=== PATIENT | female | born 1970 | race Caucasian/White ===

== ENCOUNTER 2018-01-26 14:35 | Outpatient (CLI) | payer OTHER ==
--- NOTE | 2018-01-26 18:38 | Diagnostic Imaging Report ---
SAGAR SIDDIQUI (ALEX) - OP [facility] [id number] [address] Report Submission Date: Jan 26, 2018 3:15:16 PM CDT Patient Study Name: NADIRA GOMES Date: Jan 26, 2018 2:54:10 PM CDT Modality Type: DX Gender: F Description: UPPER EXTREMITY : 66 Institution: [facility] Physician: SAGAR SIDDIQUI (ALEX) - OP Examination: Plain film left forearm History: LT FOREARM, PAIN IN DISTAL LT FOREARM AFTER FALL, Tuesday01/23/18 (Hx) Comparison exams: None available Findings: 2 views of the left radius and ulna demonstrates osteopenia. No evidence for fracture line. No soft tissue abnormality. Impression: Osteopenia. No acute appearing osseous abnormality. Electronically signed on Jan 26, 2018 3:15:16 PM CDT by: Holden SEPULVEDA
--- NOTE | 2018-01-26 18:38 | Diagnostic Imaging Report ---
SAGAR SIDDIQUI (ALEX) - OP [facility] [id number] [address] Report Submission Date: Jan 26, 2018 3:13:29 PM CDT Patient Study Name: NADIRA GOMES Date: Jan 26, 2018 2:49:55 PM CDT Modality Type: DX Gender: F Description: UPPER EXTREMITY : 66 Institution: [facility] Physician: SAGAR SIDDIQUI (ALEX) - OP Examination: Plain film left wrist History: LT WRIST, PAIN IN LT WRIST AFTER FALL, Tuesday01/23/18 (Hx) Comparison exams: None available Findings: 3 views the left wrist demonstrates osteopenia. No fracture. No dislocation. Unfused ulna styloid ossicle. No soft tissue abnormality. Impression: Osteopenia. No acute appearing osseous abnormality Electronically signed on Jan 26, 2018 3:13:29 PM CDT by: Holden SEPULVEDA
== END 2018-01-26 14:36 ==
LOC: RAD 14:35
PROVIDERS: ATTEND Nurse Practitioner Family
DX: M25.532 Pain in left wrist (principal)
CPT/HCPCS: 73090; 73110